=== PATIENT | female | born 1960 | race Caucasian/White ===

== ENCOUNTER 2018-02-23 09:31 | Outpatient (CLI) | payer OTHER ==
--- NOTE | 2018-02-23 12:28 | MRI ---
MRI BRAIN WITH AND WITHOUT CONTRAST: HISTORY: Benign positional vertigo (386.11). COMPARISON: None. FINDINGS: On the diffusion-weighted imaging sequences, there are no abnormal areas of diffusion restriction. T his is confirmed on the ADC map. On the susceptibility-weighted imaging sequences, there are no abnormal areas of hemorrhage. No abnormal enhancing masses at the cerebellar pontine angles. Cavum vergae is present. Globes are normal. Corpus callosum is normal. Flow voids of the [place] of [place] are maintained. IMPRESSION: Normal examination of the brain. POS: HERMINIO
== END 2018-02-23 09:32 | disposition home or self-care (01) ==
LOC: SCSMRI 09:31
PROVIDERS: ATTEND Family Medicine
DX: H81.13 Benign paroxysmal vertigo, bilateral (principal)
CPT/HCPCS: 70553

== ENCOUNTER 2018-11-17 15:05 | Outpatient (CLI) | payer OTHER ==
--- NOTE | 2018-11-17 16:32 | ULT ---
ULTRASOUND THYROID: 11/17/2018 HISTORY: E04.9, goiter, NOS. Follow up left thyroid nodule. COMPARISON: Thyroid ultrasound images of 01/16/2018 from [facility]. The report is not available. FINDINGS: Isthmus: 0.3 cm AP. Right lobe: 4.6 x 1.7 x 1.2 cm. Left lobe: 3.5 x 1.4 x 1.3 cm. A 0.5 x 0.4 x 0.4 cm, slightly heterogeneously hypoechoic focal nodule, at the anterolateral aspect o f the right lobe mid pole, essentially unchanged since 01/16/2018. At the upper pole of the left lobe, there is an approximately 1.1 x 1.1 x 1 cm nodule. Composition: Solid: 2 points. Echogenicity: Hypoechoic: 2 points. Shape: Wider than tall: 0 points. Margins: Smooth: 0 points. Echogenic foci: Punctate echogenic foci: 3 points. Total points: 7 TI-RADS category 5-Highly suspicious. Recommendation for category 5 thyroid nodules is FNA if greater than or equal to 1 cm; follow up if g reater than or equal to 0.5 cm (every year, up to five years). Despite the lack of interval growth since 01/16/2018, the TI-RADS score is highly suspicious for a di fferentiated thyroid cancer. Therefore, fine needle aspiration is recommended. IMPRESSION: 1. A 1.1 cm solid nodule at the upper pole of the left lobe of the thyroid gland. 2. TI-RADS category 5-Highly suspicious for (differentiated) thyroid cancer. Recommend fine needle aspiration biopsy of the left upper pole nodule. CODE T POS: MALORIE
== END 2018-11-17 15:06 | disposition home or self-care (01) ==
LOC: BICULT 15:05
PROVIDERS: ATTEND Otolaryngology Plastic Surgery within the Head & Neck
DX: E04.9 Nontoxic goiter, unspecified (principal); E04.1 Nontoxic single thyroid nodule
CPT/HCPCS: 76536

== ENCOUNTER 2019-05-18 15:40 | Outpatient (CLI) | payer OTHER ==
--- NOTE | 2019-05-18 16:18 | ULT ---
US Thyroid STANDARD History: Thyroid nodule Comparison: Ultrasound November 2018 Findings: Real-time grayscale and color evaluation of the thyroid was performed. Isthmus measures 3 mm in AP dimension. Right lobe measures 4.7 x 1.8 x 1.8 cm and the left lobe measu res 3.8 x 1.3 x 1.4 cm. Similar size of the solid hypoechoic nodule left lobe of thyroid which is taller than wide with butch h margins and punctate echogenic foci. Within the right lobe is a sub-5 mm solid hypoechoic wider than tall nodule nodule without echogenic foci with smooth margins. Impression: Size unchanged left thyroid nodule which is TI-RADS 5: Highly suspicious. Ultrasound-guid ed fine-needle aspiration recommended if not already performed.
== END 2019-05-18 15:41 | disposition home or self-care (01) ==
LOC: BICULT 15:40
PROVIDERS: ATTEND Otolaryngology Plastic Surgery within the Head & Neck
DX: E04.9 Nontoxic goiter, unspecified (principal); E04.1 Nontoxic single thyroid nodule
CPT/HCPCS: 76536

== ENCOUNTER 2022-04-01 12:11 | Outpatient (CLI) | payer OTHER | END 2022-04-01 12:12 | disposition home or self-care (01) | LOC: BICULT 12:11 | PROVIDERS: ATTEND Otolaryngology Plastic Surgery within the Head & Neck | DX: E04.2 Nontoxic multinodular goiter (principal) | CPT/HCPCS: 76536 ==

== ENCOUNTER 2024-08-10 11:16 | Outpatient (CLI) | payer OTHER | END 2024-08-10 11:17 | disposition home or self-care (01) | LOC: BICULT 11:16 | PROVIDERS: ATTEND Otolaryngology Plastic Surgery within the Head & Neck | DX: E04.1 Nontoxic single thyroid nodule (principal); E04.9 Nontoxic goiter, unspecified | CPT/HCPCS: 76536 ==